=== PATIENT | male | born 1940 | race Caucasian/White ===

== ENCOUNTER 2016-12-22 17:45 | Emergency (ER) | payer OTHER, BC ==
[~2016-12-22] VITALS: Ht 180.3 cm; Wt 125.1 kg
[~2016-12-22 17:45] MED LIST: ADVIN50050 INH; ALBU1AER9 INH; ALLO100T PO; AMLO2.5T PO; ASPI-435 PO; ATOR-26 PO; ATV/1 PO; CARV12.52 PO; CELE100C PO; COLC0.6T54 PO; DUTACAP PO; FRS/80 PO; GLY/5 PO; HYDR-5688 PO; HYT/2 PO; INSDGI SC; LOSA1TAB38 PO; MULTTAB58 PO; NITR0.4S UT; NXM/40 PO; OMEG500C2 PO; SITA100T3 PO; SODI650T8 PO; TRIA1SPR2 NAE
[2016-12-22 17:50] VITALS: TEMP 36.7; Ht 180.3 cm; Wt 125.1 kg
--- NOTE | 2016-12-22 18:14 | EMERGENCY ROOM VISIT NOTE ---
History Report prepared by Fei: Gertrudis Finn Under the Supervision of: Dr. Otis Britt M.D. 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 The patient states that he use to be able to walk about 300 feet without being short of breath and now he can only walk 100 feet without becoming short of breath. The patient states that along with being short of breath he recently started having blurred vision. The patient states that his left eye peripheral vision is "monahan and fuzzy." The patient states that he also has some right upper jaw numbness which started after he had his teeth removed 3 years ago.The patient states that he also has lower leg swelling but states it has improved since August when his purchasing intern changed his medication. The patient states that he also had some sinus congestion recently and has been using a nasal spray. The patient state that for his shortness of breath he occasionally uses an inhaler. 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 He states that since his surgery he had not had a heart catheterization or a stress test. 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 ) Note: Associated symptoms: blurred vision,left eye peripheral vision is "monahan and fuzzy," swelling to legs, sinus congestion. Review of Systems See HPI for pertinent positives & negatives. A total of 10 systems reviewed and were otherwise negative. Past Medical & Surgical Medical Problems: (1) Arthritis (2) Diabetes (3) History of open heart surgery (4) HTN (hypertension) Family History No pertinent family history secondary to age Social History Smoking Status: Former Smoker Alcohol Use: none Drug Use: none Marital Status: Occupation Status: retired Current/Historical Medications Scheduled Allopurinol (Allopurinol), 2 TABS PO DAILY Amlodipine Besylate (Amlodipine Besylate), 10 MG PO DAILY Amoxicillin (Amoxil), 2,000 MG PO UD Aspirin (Aspirin 81), 1 TAB PO DAILY Atorvastatin (Lipitor), 1 TAB PO HS Calcitriol (Calcitriol), 0.25 MCG PO 3XWK Carvedilol (Carvedilol), 12.5 MG PO BID Colchicine (Colchicine), 0.6 MG PO DAILY Dutasteride-Tamsulosin HCl (Dutasteride/Tamsulosin Hy 0.5-0.4 mg), 1 TAB PO DAILY Esomeprazole Magnesium (Nexium), 40 MG PO DAILY Fish Oil ([place]-3), 1 CAP PO DAILY Fluticasone Prop/Salmeterol (Advair Diskus 500-50 Mcg/Dose), 1 PUFF INH BID Hydralazine HCl (Hydralazine HCl), 50 MG PO BID Insulin Aspart (Novolog Flexpen), UNITS SQ TIDM Insulin Glargine (Lantus Solostar), 20 UNITS SQ QAM Insulin Glargine (Lantus Solostar), 34 UNITS SQ HS Losartan Potassium (Cozaar), 100 MG PO DAILY Mometasone Furoate (Nasal) (Mometasone Furoate), 2 SPRAYS JOSE DAILY Multiple Vitamin (Multivitamin), 1 TAB PO DAILY [place]-3 Fatty Acids (Fish Oil), 1,000 MG PO DAILY Prednisone (Prednisone Tab), 0 PO DAILY Terazosin HCl (Terazosin HCl), 2 TABS PO HS Torsemide (Torsemide), 80 MG PO DAILY [Proair 108 Mcg/Act], 2 PUFFS INH PRN UD Scheduled PRN Celecoxib (Celebrex), 100 MG PO DAILY PRN for Pain Hydrocodone/Acetaminophen 5MG/325MG ([place] 5MG/325MG), 1 TABLET PO Q6H PRN for Pain Lorazepam (Ativan), 1 MG PO HS PRN for SLEEP/ANXIETY Nitroglycerin (Nitrostat), 0.4 MG UT PRN PRN for Chest Pain Allergies Coded Allergies: Latex1 -Allergic Contact Dermititis (Verified Allergy, Unknown, red, ) Acetaminophen (Verified Adverse Reaction, Unknown, difficulty urinating, ) Physical Exam Vital Signs Date Time Temp Pulse Resp B/P Pulse Ox O2 Delivery O2 Flow Rate FiO2 12/22/16 21:18 54 15 176/59 93 12/22/16 20:45 51 14 99 12/22/16 20:30 174/83 12/22/16 20:01 55 18 96 Room Air 12/22/16 19:56 54 16 186/62 96 Room Air 12/22/16 19:05 95 Room Air 12/22/16 19:00 53 20 191/66 94 Room Air 12/22/16 18:54 95 Room Air 12/22/16 17:50 36.7 51 18 172/68 95 Room Air Physical Exam GENERAL: Patient is a healthy-appearing well-nourished HEAD: Normocephalic atraumatic EYES: Ocular movements intact pupils equal and react to light OROPHARYNX mucous membranes are moist no exudates present no erythema or edema present NECK: Supple no nuchal rigidity CHEST: Good equal expansion LUNGS: Wheezing bilaterally CARDIAC: Normal S1 and S2 ABDOMEN: Soft nontender no guarding BACK: No CVA tenderness EXTREMITIES: No pain upon palpation normal muscle strength in all groups no clubbing cyanosis or edema NEURO: Patient is following commands is answering questions appropriately. Alert and oriented x3 Cranial Nerves 2-12 grossly intact Medical Decision & Procedures ER Provider Diagnostic Interpretation: CT results as stated below per my review and radiologist interpretation: HEAD CT NONCONTRAST CT DOSE: 614.27 mGy.cm HISTORY: Headache. Pt c/o loss of vision TECHNIQUE: Multiaxial CT images of the head were performed without the use of intravenous contrast. Automated exposure control was utilized for this study. Comparison: None. Findings: Mild mucosal thickening within the ethmoid air cells. The mastoid air cells are clear. The calvarium and skull base are intact. There is no mass, hematoma, midline shift, acute infarct. White matter hypodensity is nonspecific but suggestive of microvascular ischemic change. The ventricles and sulci demonstrate mild age-related involutional changes. Impression: No acute intracranial abnormality. Atrophy and microvascular ischemic changes. Electronically signed by: Chan Davis M.D. 12/22/2016 7:03 PM Dictated Date/Time: 12/22/2016 6:59 PM X-ray results as stated below per interpretation by me and the radiologist: CHEST ONE VIEW PORTABLE HISTORY: Short of breath. COMPARISON: Chest 04/03/2015. FINDINGS: The heart remains mildly enlarged. There is mild central pulmonary vascular congestion without overt edema. This is not significantly change. A few linear densities the left lung base have improved and favor subsegmental atelectasis. No new focal lung consolidations to suggest pneumonia. Poststernotomy changes. No pleural effusions. No pneumothorax. IMPRESSION: 1. Stable cardiomegaly. 2. Mild central pulmonary vascular congestion without overt edema. Electronically signed by: Chan Davis M.D. 12/22/2016 7:07 PM Dictated Date/Time: 12/22/2016 7:06 PM Laboratory Results 12/22/16 19:10 Red Blood Count 3.84, Mean Corpuscular Volume 84.1, Mean Corpuscular Hemoglobin 28.6, Mean Corpuscular Hemoglobin Concent 34.1, Mean Platelet Volume 10.8, Neutrophils (%) (Auto) 49.3, Lymphocytes (%) (Auto) 33.3, Monocytes (%) (Auto) 8.3, Eosinophils (%) (Auto) 8.3, Basophils (%) (Auto) 0.6, Neutrophils # (Auto) 4.09, Lymphocytes # (Auto) 2.76, Monocytes # (Auto) 0.69, Eosinophils # (Auto) 0.69, Basophils # (Auto) 0.05 12/22/16 19:10 Test 12/22/16 18:40 12/22/16 19:10 12/22/16 19:15 12/22/16 19:17 Urine Color YELLOW Urine Appearance CLEAR (CLEAR) Urine pH 5.0 (4.5-7.5) Urine Specific [place] 1.009 (1.000-1.030) Urine Protein NEG (NEG) Urine Glucose (UA) NEG (NEG) Urine Ketones NEG (NEG) Urine Occult Blood NEG (NEG) Urine Nitrite NEG (NEG) Urine Bilirubin NEG (NEG) Urine Urobilinogen NEG (NEG) Urine Leukocyte Esterase NEG (NEG) White Blood Count 8.30 K/uL (4.8-10.8) Red Blood Count 3.84 M/uL (4.7-6.1) Hemoglobin 11.0 g/dL (14.0-18.0) Hematocrit 32.3 % (42-52) Mean Corpuscular Volume 84.1 fL (80-100) Mean Corpuscular Hemoglobin 28.6 pg (25-34) Mean Corpuscular Hemoglobin Concent 34.1 g/dl (32-36) Platelet Count 203 K/uL (130-400) Mean Platelet Volume 10.8 fL (7.4-10.4) Neutrophils (%) (Auto) 49.3 % Lymphocytes (%) (Auto) 33.3 % Monocytes (%) (Auto) 8.3 % Eosinophils (%) (Auto) 8.3 % Basophils (%) (Auto) 0.6 % Neutrophils # (Auto) 4.09 K/uL (1.4-6.5) Lymphocytes # (Auto) 2.76 K/uL (1.2-3.4) Monocytes # (Auto) 0.69 K/uL (0.11-0.59) Eosinophils # (Auto) 0.69 K/uL (0-0.5) Basophils # (Auto) 0.05 K/uL (0-0.2) RDW Standard Deviation 47.3 fL (36.4-46.3) RDW Coefficient of Variation 15.2 % (11.5-14.5) Immature Granulocyte % (Auto) 0.2 % Immature Granulocyte # (Auto) 0.02 K/uL (0.00-0.02) Est Creatinine Clear Calc Drug Dose 33.3 ml/min Estimated GFR () 27.7 Estimated GFR (Non- 23.9 BUN/Creatinine Ratio 19.7 (10-20) Calcium Level 9.0 mg/dl (8.5-10.1) Total Bilirubin 0.6 mg/dl (0.2-1) Aspartate Amino Transf (AST/SGOT) 28 U/L (15-37) Alanine Aminotransferase (ALT/SGPT) 33 U/L (12-78) Alkaline Phosphatase 110 U/L (45-117) Total Creatine Kinase 110 U/L (39-308) Creatine Kinase MB 1.2 ng/ml (0.5-3.6) Creatine Kinase MB Ratio 1.1 (0-3.0) Troponin I < 0.015 ng/ml (0-0.045) Pro-B-Type Natriuretic Peptide 392 pg/ml (0-1800) Total Protein 7.7 gm/dl (6.4-8.2) Albumin 4.0 gm/dl (3.4-5.0) Globulin 3.7 gm/dl (2.5-4.0) Albumin/Globulin Ratio 1.1 (0.9-2) Influenza Type A (RT-PCR) Neg for Influ A (NEG) Influenza Type A Antigen Neg for Influ A (NEG) Influenza Type B Antigen Neg for Influ B (NEG) Influenza Type B (RT-PCR) Neg for Influ B (NEG) Bedside D-Dimer 372 ng/mlFEU (0-450) Test 12/22/16 19:22 Bedside Hemoglobin 11.2 g/dl (14.0-18.0) Bedside Hematocrit 33 % (42-52) Bedside Sodium 141 mEq/L (135-144) Bedside Potassium 4.1 mEq/L (3.3-5.0) Bedside Chloride 104 mEq/L (101-112) Bedside Total CO2 22 mEq/l (24-31) Anion Gap 20.0 mmol/L (16-25) Bedside Blood Urea Nitrogen 47 mg/dl (7-18) Bedside Creatinine 2.3 mg/dl (0.6-1.3) Bedside Glucose (other) 137 mg/dl (70-99) Bedside Ionized Calcium (Natividad) 1.11 mmol/l (1.12-1.32) Labs reviewed by ED physician. Medications Administered Medications (Trade) Dose Ordered Sig/Leigh Route Start Time Stop Time Status Last Admin Dose Admin Sodium Chloride (Nss 500ml) 500 ml @ 999 mls/hr Q31M STAT IV 12/22/16 19:38 12/22/16 20:08 DC 12/22/16 19:51 999 MLS/HR Albuterol/ Ipratropium (Duoneb) 12 ml ONE STAT INH 12/22/16 19:38 12/22/16 19:39 DC 12/22/16 19:59 12 ML Methylprednisolone Sodium Succinate (Solu-Medrol IV) 60 mg NOW STAT IV 12/22/16 20:09 12/22/16 20:10 DC 12/22/16 20:23 60 MG ECG Indication: SOB/dyspnea Rate (beats per minute): 55 Rhythm: sinus bradycardia Findings: no acute ischemic change, no ectopy ED Course 1759: Past medical records reviewed. The patient was evaluated in room B9. A complete history and physical examination was performed. 1938: Ordered DuoNeb 12 ml INH, Sodium Chloride 500 ml @ 999 mls/hr IV. 2008: Ordered Solu-Medrol IV 60 mg IV. 2010: I reevaluated the patient and he states all his symptoms have resolved. On exam, wheezing has resolved. I discussed results and treatment plan with the patient. He verbalizes agreement and understanding. The patient is ready for discharge. Medical Decision Differential diagnosis: Etiologies such as infections, reactive airway disease, pneumonia, pneumothorax , COPD, CHF, cardiac ischemia, pulmonary embolism, musculoskeletal, gastrointestinal, as well as others were entertained. This is a 76-year-old male who presents emergency department complaining of shortness of breath. The patient is wheezing on examination. For this reason he was given an hour-long breathing treatment. I will note his creatinine is slightly bumped a has no evidence of congestive heart failure on his chest x- ray. For this reason the patient was given normal saline bolus here in the emergency department. He was also sent for CAT scan of the head however this was normal. As the patient's symptoms have been going on for 2 days I would expect a stroke to have shown up by this point. I will note that the breathing treatment seemed to resolve most of the patient's symptoms. After completion of the breathing treatment the patient was ambulated around the emergency Department. At this point feeling much better he is requesting Aleve. His wheezing has resolved on repeat examination. 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 I will note he has a normal unchanged EKG, CK-MB troponin. Pt will be placed prednisone and was cautioned to watch his blood sugars while on prednisone. Impression Primary Impression: Acute bronchitis Scribe Attestation The scribe's documentation has been prepared under my direction and personally reviewed by me in its entirety. I confirm that the note above accurately reflects all work, treatment, procedures, and medical decision making performed by me. Departure Information Dispostion Home / Self-Care Prescriptions Prednisone (Prednisone Tab) 20 Mg Tab 0 PO DAILY, #7 TAB 2 TABS DAILY FOR 2 DAYS, THEN 1 TAB DAILY FOR 2 DAYS, THEN 1/2 TAB DAILY FOR 2 DAYS. Prov: Otis Britt MD 12/22/16 Referrals Emily De La O PA-C (PCP) Forms HOME CARE DOCUMENTATION FORM, IMPORTANT VISIT INFORMATION Patient Instructions My [facility] Additional Instructions Need follow up with Cory Head's office Use inhaler twice every 6 hours You have been examined and treated today on an emergency basis only. This is not a substitute for, or an effort to provide, complete comprehensive medical care. It is impossible to recognize and treat all injuries or illnesses in a single emergency department visit. It is therefore important that you follow up closely with your PCP. Call as soon as possible for an appointment. Thank you for your time and consideration. I look forward to speaking with you again soon. Please don't hesitate to call us if you have any questions. Problem Qualifiers Primary Impression: Acute bronchitis Bronchitis organism: unspecified organism Qualified Codes: J20.9 - Acute bronchitis, unspecified
[2016-12-22] MEDS ORDERED: AMOX500C3 PO (18:17)
[2016-12-22] MEDS ORDERED: NXM/40 PO (18:17)
[2016-12-22] MEDS ORDERED: HYT1 PO (18:17)
[2016-12-22] MEDS ORDERED: CALC1CAP36 PO (18:35)
[2016-12-22] MEDS ORDERED: INSDGIPEN SQ ×2 (18:35)
[2016-12-22] MEDS ORDERED: PROAIR INH (18:35)
[2016-12-22] MEDS ORDERED: LOSA100T65 PO (18:35)
[2016-12-22] MEDS ORDERED: MOME6000 NAE (18:35)
[2016-12-22] MEDS ORDERED: NVLGI/PEN SQ (18:35)
[2016-12-22] MEDS ORDERED: OMEG10007 PO (18:35)
[2016-12-22] MEDS ORDERED: NRV/10 PO (18:35)
[2016-12-22] MEDS ORDERED: CRG125 PO (18:35)
[2016-12-22] MEDS ORDERED: HYDR-5688 PO (18:35)
[2016-12-22] MEDS ORDERED: DMD20 PO (18:35)
[2016-12-22] MEDS ORDERED: APR50 PO (18:35)
[2016-12-22] MEDS ORDERED: ALL100 PO (18:35)
[2016-12-22] MEDS ORDERED: DUTA1CAP PO (18:36)
[2016-12-22 18:54] VITALS: O2SAT 95
--- NOTE | 2016-12-22 19:05 | DIAGNOSTIC IMAGING REPORT ---
HEAD CT NONCONTRAST CT DOSE: 614.27 mGy.cm HISTORY: Headache. Pt c/o loss of vision TECHNIQUE: Multiaxial CT images of the head were performed without the use of intravenous contrast. Automated exposure control was utilized for this study. Comparison: None. Findings: Mild mucosal thickening within the ethmoid air cells. The mastoid air cells are clear. The calvarium and skull base are intact. There is no mass, hematoma, midline shift, acute infarct. White matter hypodensity is nonspecific but suggestive of microvascular ischemic change. The ventricles and sulci demonstrate mild age-related involutional changes. Impression: No acute intracranial abnormality. Atrophy and microvascular ischemic changes. Electronically signed by: Chan Davis M.D. 12/22/2016 7:03 PM Dictated Date/Time: 12/22/2016 6:59 PM
--- NOTE | 2016-12-22 19:09 | DIAGNOSTIC IMAGING REPORT ---
CHEST ONE VIEW PORTABLE HISTORY: Short of breath. COMPARISON: Chest 04/03/2015. FINDINGS: The heart remains mildly enlarged. There is mild central pulmonary vascular congestion without overt edema. This is not significantly change. A few linear densities the left lung base have improved and favor subsegmental atelectasis. No new focal lung consolidations to suggest pneumonia. Poststernotomy changes. No pleural effusions. No pneumothorax. IMPRESSION: 1. Stable cardiomegaly. 2. Mild central pulmonary vascular congestion without overt edema. Electronically signed by: Chan Davis M.D. 12/22/2016 7:07 PM Dictated Date/Time: 12/22/2016 7:06 PM
[2016-12-22 19:26] LABS: BASO % 0.6 %; BASO ABS # 0.05 K/uL (0-0.2); COMPLETE YES; EOS % 8.3 %; HEMATOCRIT 32.3 % (42-52); IG% 0.2 %; LYMPH % 33.3 %; LYMPH ABS # 2.76 K/uL (1.2-3.4); MEAN CELL VOLUME 84.1 fL (80-100); MEAN CORPUSCULAR HEMOGLOBIN 28.6 pg (25-34); MEAN CORPUSCULAR HGB CONC 34.1 g/dl (32-36); MEAN PLATELET VOLUME 10.8 fL (7.4-10.4); MONO % 8.3 %; NEUT % 49.3 %; PLATELET COUNT 203 K/uL (130-400); RED BLOOD COUNT 3.84 M/uL (4.7-6.1)
[2016-12-22 19:37] LABS: ISTAT CREATININE 2.3 mg/dl (0.6-1.3); ISTAT HEMOGLOBIN 11.2 g/dl (14.0-18.0); ISTAT IONIZED CALCIUM 1.11 mmol/l (1.12-1.32)
[2016-12-22] MEDS ORDERED: SODIUM CHLORIDE 0.9% 500ML 500 ML IV STA (19:38)
[2016-12-22] MEDS ORDERED: ALBUT/IPRATROP 3MG/0.5MG NEB 3 ML VIAL INH STA (19:38)
[2016-12-22 19:39] LABS: URINE APPEARANCE CLEAR (CLEAR); URINE BILIRUBIN NEG (NEG); URINE COLOR YELLOW; URINE NITRITE NEG (NEG); URINE SPECIFIC GRAVITY 1.009 (1.000-1.030); UROBILINOGEN NEG (NEG)
[2016-12-22 19:46] LABS: MANUAL MICROSCOPIC REQUIRED? NO; REVIEW REQ? NO
[2016-12-22 19:49] LABS: ALT/SGPT 33 U/L (12-78); AST/SGOT 28 U/L (15-37); BLOOD UREA NITROGEN 49 mg/dl (7-18); BUN/CREATININE RATIO 19.7 (10-20); CARBON DIOXIDE 24 mmol/L (21-32); CHLORIDE 107 mmol/L (98-107); GLUCOSE 135 mg/dl (70-99); POTASSIUM 4.1 mmol/L (3.5-5.1); SODIUM 142 mmol/L (136-145)
[2016-12-22 19:54] LABS: ALB/GLOB RATIO 1.1 (0.9-2); ALKALINE PHOSPHATASE 110 U/L (45-117); CKMB/CK RATIO 1.1 (0-3.0)
[2016-12-22 20:01] VITALS: PULSE 55; O2SAT 96
[2016-12-22] MEDS ORDERED: METHYLPREDNISOLONE 125 MG VIAL IV STA (20:09)
[2016-12-22] MEDS ORDERED: PRED20TA2 PO (20:11)
[2016-12-22 21:18] VITALS: BP 176/59; PULSE 54; O2SAT 93
[2016-12-22 21:18] LABS: INFLUENZA A PCR Neg for Influ A (NEG); INFLUENZA B PCR Neg for Influ B (NEG)
== END 2016-12-22 21:18 | disposition home or self-care (01) ==
LOC: C.EDB 17:46
DX: J20.9 Acute bronchitis, unspecified (principal); H54.7 Unspecified visual loss; I51.7 Cardiomegaly; I10 Essential (primary) hypertension; E11.9 Type 2 diabetes mellitus without complications; Z79.4 Long term (current) use of insulin; Z87.891 Personal history of nicotine dependence